=== PATIENT | female | born 1955 | race Two or more races ===

== ENCOUNTER 2025-03-29 17:52 | Emergency (ER) | payer MEDICARE, OTHER ==
[~2025-03-29] VITALS: Ht 167.6 cm; Wt 132.5 kg
--- NOTE | 2025-03-29 18:15 | ED.PDOC ---
Musculoskeletal HPI Comments Vitals Temperature: 97.8 F Blood pressure: 120/58 Heart Rate: 94 RR: 18 SPO2: 98% RA Past medical history: HTN, prediabetes Past surgical history: Left knee surgery, cholecystectomy, Patient is on lisinopril, potassium, tramadol, Motrin, hydrochlorothiazide, neuropathy medications, KEME: b/l recurrent focal foot pain, no fall,m trauma, ibuprofen/tramadol. obese, normal exam. NV intact. HPI: Poor Historian. 69-year-old female presents to emergency room for evaluation of right foot pain since Wednesday. She describes the pain as aching. Patient points at the top of her foot at the dorsum aspect focal point of tenderness. Denies any fall or trauma or injury. Denies any chest pain shortness of breath or calf tenderness. Patient states she had these episodes multiple times in the past unusual response to tramadol and ibuprofen. She has been taking some tramadol and ibuprofen without significant improvement of her pain. Patient takes tramadol 50 mg at home REVIEW OF SYSTEMS: CONSTITUTIONAL: Denies acute: fever, diaphoresis, chills, generalized weakness. HEAD: Denies acute: headache, photophobia Eyes: Denies acute: Double vision, vision loss, eye pain, eye discharge. EARS: Denies acute: tinnitus, hearing loss, ear discharge, ear pain, THROAT: Denies acute: sore throat, swelling, difficulty swallowing , pain with swallowing, change in voice. NECK: Denies acute: neck pain, neck swelling, stiff neck. HEART: Denies acute : chest pain, palpitations, LUNGS: Denies acute: SOB, wheezing, cough, hemoptysis ABDOMEN: Denies acute: abdominal pain, Nausea, Vomiting, diarrhea, melena , hematemesis, hematochezia SKIN: Denies acute: rash, redness, lesions, itchiness. EXTREMITIES: Denies acute: calf pain, numbness, tingling, weakness, Denies acute: Low back pain. Neuro: Denies acute: focal neurological deficit, motor or sensory focal neurological deficit, tremors, seizure like activity, confusion, dizziness, change in mental status, loss of bowel or bladder function, cauda equina like symptoms. : Denies acute: dysuria, hematuria, flank pain, increase in urinary frequency. PSYCH: Denies acute: hallucination, suicidal ideation, homicidal ideation. FEMALE: Denies acute: abnormal vaginal bleeding, foul odor, unusual discharge. PHYSICAL EXAM: General: ----mild----acute distress, awake and alert. Head: normocephalic, atraumatic. Neck: supple, trachea is midline, no swelling. Throat: Normal phonation. Eyes:, no erythema, no purulent discharge, no proptosis, no icterus. Heart: regular rate, regular rhythm, no significant murmur appreciated. Lungs: no apparent respiratory distress, Able to speak in full sentences. No wheezing, no rhonchi, no crackles. No stridors Clear to auscultation bilaterally. Abdomen: non tender to palpation, non distended, soft, no guarding, no rebound, + bowel sounds. Morbidly obese. Neuro: Awake, Alert, oriented to name, self, situation, follows commands GCS=15. Speech is normal. Skin: no petechia, no purpura, no cyanosis, non-pale, not jaundice. Lower extremities: --no - Pitting edema no deformity, no focal swelling, no calf TTP. Evaluation of bilateral feet: Patient points specifically on her right foot where she has a focal tenderness to palpation at the medial aspect of the dorsum of the foot without any deformity erythema or swelling. Patient is neurovascularly intact in bilateral lower extremities. Pedal pulses are palpable. Motor and sensory are present. Makes eye contact. moves all four extremities. Face: no apparent facial droop. Pedal pulses are palpable. ED COURSE: Time Seen by MD: 18:10 Reviewed Notes: Nurses Notes, Allergies Allergies: Coded Allergies: NO KNOWN ALLERGIES (Unverified , 03/29/25) Information Source: Patient Location: Bilateral Was a procedure done? Was a procedure done?: No Differential Diagnosis EXT Differential Diagnosis: Cellulitis, Deep Vein Thrombosis, Compartment Syndrome, Fracture, Sprain, Gout, DJD, Contusion, Strain, Septic, Neurovascular injury, Arthritis, Bursitis, Other (Neuropathy) X-Ray, Labs, Meds, VS Vital Signs Date Time Temp Pulse Resp B/P (MAP) Pulse Ox O2 Delivery O2 Flow Rate FiO2 03/29/25 23:06 77 17 116/65 (82) 98 03/29/25 20:55 97.9 78 15 126/70 (88) 99 97.9 03/29/25 20:45 Room Air* 0 21 03/29/25 18:14 97.8 84 18 120/58 (78) 96 97.8 Lab Test 03/29/25 20:43 03/29/25 18:17 Range/Units Erythrocyte Sedimentation Rate 78 H 0-20 mm/hr White Blood Count 8.3 4.4-10.8 10^3/uL Red Blood Count 4.57 4.0-5.20 10^6/uL Hemoglobin 12.9 12.2-16.2 g/dL Hematocrit 38.8 36.0-46.0 % Mean Corpuscular Volume 84.7 80.0-100.0 fL Mean Corpuscular Hemoglobin 28.2 28.0-32.0 pg Mean Corpuscular Hemoglobin Concent 33.3 32.0-36.0 g/dL Red Cell Distribution Width 14.9 H 11.8-14.3 % Platelet Count 217 140-450 10^3/uL Mean Platelet Volume 10.2 6.9-10.8 fL Neutrophils (%) (Auto) 60.4 37.0-80.0 % Lymphocytes (%) (Auto) 27.7 10.0-50.0 % Monocytes (%) (Auto) 8.9 0.0-12.0 % Eosinophils (%) (Auto) 2.5 0.0-7.0 % Basophils (%) (Auto) 0.5 0.0-2.0 % Neutrophils # (Auto) 5.0 1.6-8.6 10 ^3/uL Lymphocytes # (Auto) 2.3 0.4-5.4 10 ^3/uL Monocytes # (Auto) 0.7 0-1.3 10 ^3/uL Eosinophils # (Auto) 0.2 0-0.8 10 ^3/uL Basophils # (Auto) 0 0-0.2 10 ^3/uL Nucleated Red Blood Cells 0.0 % Sodium Level 139 136-145 mmol/L Potassium Level 2.9 L 3.5-5.1 mmol/L Chloride Level 103 98-107 mmol/L Carbon Dioxide Level 28 20-31 mmol/L Anion Gap 8 5-15 Blood Urea Nitrogen 16 9-23 mg/dL Creatinine 1.19 H 0.550-1.02 mg/dL Glomerular Filtration Rate Calc 50 >90 mL/min BUN/Creatinine Ratio 13.4 10.0-20.0 Serum Glucose 92 74-106 mg/dL Calcium Level 10.2 8.7-10.4 mg/dL C-Reactive Protein High Sensitivity 6.92 H <1.0 mg/dL Current Medications Medications (Trade) Dose Ordered Sig/Bc Route Start Time Stop Time Status Last Admin Potassium Chloride (Klor-Con Tablet) 60 meq ONCE ONCE PO 03/29/25 21:15 03/29/25 21:16 DC 03/29/25 23:20 Tramadol HCl (Ultram) 50 mg ONCE ONCE PO 03/29/25 23:30 03/29/25 23:31 DC 03/29/25 23:31 Time of 1ST Reevaluation: 18:12 Reevaluation 1ST: Unchanged Time of 2ND Reevaluation: 23:17 (As of now, patient has not received any medications ordered yet) Time of 3RD Reevaluation: 23:30 (Patient refused the [place] and said that it gives her a stomach upset. I gave her tramadol instead which she is agreeable with. She is here with her family members.) Patient Education/Counseling: Diagnosis, Treatment Family Education/Counseling: No Family Present Comments Patient presented with the above HPI.---focal foot pain---workup was initiated. patient was found with the above mentioned diagnosis. the following medications were ordered: please refer to order lists of meds and tests obtained by myself Dr. Rodriguez. Patient ED course and VS have been stabilized. Patient has been reassessed in the ED and remained in a stable condition. Pertinent incidental findings were discussed with the patient and/or family. Patient/family voices understanding and is agreeable with plan. Patient has been observed in the ED adequate length of time to insure improvement/stability. Escalation of care considered: Consideration of escalation to observation or admission Patient was DISCHARGED home in a stable condition. All the reports of any imaging studies that were ordered by myself were reviewed by myself. Departure 1 Departure Time of Disposition: 23:17 Impression: Primary Impression: Bilateral foot pain Disposition: 01 HOME / SELF CARE / HOMELESS Condition: Stable Additional Instructions: Additional instructions: You MUST follow-up with your primary care/family doctor in 1 to 2 days. If you are unable to see your primary care/family doctor, please return to our emergency room for re-assessment and re-evaluation in 1 to 2 days. Return to the emergency room here in our facility or to the nearest ER [facility] if your symptoms change or worsen. CONSULTATIONS: you MUST Follow-up for consultation as soon as possible with: -orthopedic doctor and rheumatology in 1-2 days. Please call for appointment. You MUST call the consultants office yourself to make an appointment. You may n eed to arrange that through your insurance and/or your primary/family doctor. If you are unable to see the [employer] consultant in 1 to 2 days, you must return to our emergency room (or any other ER of your choice) for re-assessment and re- evaluation. Adequate fluid hydration. Rest. Discharged With: Self, Relative Critical Care Note Critical Care Time?: No I personally scribed for DAMIÁN RODRIGUEZ DO ([email or web address]) on 03/29/25 at 18:15. Electronically submitted by Roxy Isaacs ([facility]). DAMIÁN RODRIGUEZ DO Mar 29, 2025 18:15
[2025-03-29 18:47] LABS: Basophils # (auto) 0 10 ^3/uL (0-0.2); Basophils % (auto) 0.5 % (0.0-2.0); Eosinophils # (auto) 0.2 10 ^3/uL (0-0.8); Eosinophils % (auto) 2.5 % (0.0-7.0); Hematocrit 38.8 % (36.0-46.0); Hemoglobin 12.9 g/dL (12.2-16.2); Lymphocytes # (auto) 2.3 10 ^3/uL (0.4-5.4); Lymphocytes % (auto) 27.7 % (10.0-50.0); Mean Corpuscular Hemoglobin 28.2 pg (28.0-32.0); Mean Corpuscular Hgb Conc. 33.3 g/dL (32.0-36.0); Mean Corpuscular Volume 84.7 fL (80.0-100.0); Monocytes # (auto) 0.7 10 ^3/uL (0-1.3); Monocytes % (auto) 8.9 % (0.0-12.0); Neutrophils % (auto) 60.4 % (37.0-80.0); Platelet Count (auto) 217 10^3/uL (140-450); Red Blood Cells 4.57 10^6/uL (4.0-5.20); Red Cell Distribution Width 14.9 % (11.8-14.3); White Blood Cell 8.3 10^3/uL (4.4-10.8)
[2025-03-29 18:55] LABS: Chloride 103 mmol/L (98-107); Sodium 139 mmol/L (136-145)
[2025-03-29 18:56] LABS: Anion Gap 8 (5-15); Carbon Dioxide 28 mmol/L (20-31)
[2025-03-29 18:57] LABS: Calcium 10.2 mg/dL (8.7-10.4)
[2025-03-29 19:01] LABS: Glucose 92 mg/dL (74-106)
[2025-03-29 19:02] LABS: BUN/Creatinine Ratio 13.4 (10.0-20.0); Blood Urea Nitrogen 16 mg/dL (9-23)
[2025-03-29 19:30] LABS: CRP High Sensitivity 6.92 mg/dL (<1.0); Potassium 2.9 mmol/L (3.5-5.1)
[2025-03-29] MEDS: HYDROcodone-ACET 5/325MG TAB PO ONE (20:45)
[2025-03-29 20:55] VITALS: TEMP 97.9
[2025-03-29 21:58] LABS: Erythrocyte Sedimentation Rate 78 mm/hr (0-20)
[2025-03-29 23:06] VITALS: BP 116/65; PULSE 77; RESP 17; O2SAT 98
[2025-03-29] MEDS: POTASSIUM CHL 20 Meq TABLET PO ONE (23:20)
[2025-03-29] MEDS: traMADol HCL 50 MG TAB PO ONE (23:31)
== END 2025-03-29 23:56 | disposition home or self-care (01) ==
LOC: ER 17:57
DX: M79.671 Pain in right foot (principal); M79.672 Pain in left foot; I10 Essential (primary) hypertension; Z90.49 Acquired absence of other specified parts of digestive tract
CPT/HCPCS: 36415; 80048; 85025; 85652; 86141